=== PATIENT | male | born 1975 | race Caucasian/White ===

== ENCOUNTER 2019-07-05 08:21 | Emergency (ER) | payer BC, OTHER ==
[~2019-07-05] VITALS: Ht 185.4 cm; Wt 104.3 kg
[2019-07-05 08:39] VITALS: BP 124/84
[2019-07-05] MEDS ORDERED: ACETAMINOPHEN 160 MG/5 ML ORAL.SUSP. PO ONE (08:45)
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
[2019-07-05] MEDS ORDERED: ACETAMINOPHEN 650 MG/20.3 ML SOLUTION. ONE (08:57)
== END 2019-07-05 09:09 | disposition home or self-care (01) ==
LOC: ER 08:21
DX: S20.319A Abrasion of unspecified front wall of thorax, initial encounter (principal); S19.9XXA Unspecified injury of neck, initial encounter; Y08.89XA Assault by other specified means, initial encounter; Y93.89 Activity, other specified; Y92.89 Other specified places as the place of occurrence of the external cause; Y99.0 Civilian activity done for income or pay
CPT/HCPCS: 99281; 99282

== ENCOUNTER 2022-01-20 17:41 | Emergency (ER) | payer OTHER ==
[~2022-01-20] VITALS: Ht 185.4 cm; Wt 103.0 kg
--- NOTE | 2022-01-20 17:56 | PHYS DOC ---
Past History Past Medical History: Diabetes, GERD, Hypertension (SOFY AMBROSIO APRN) Alcohol Use: None Drug Use: None (SOFY AMBROSIO APRN) General Adult HPI: HPI: Patient is a 46-year-old male who presents to the emergency department for left- sided occipital head pain that he rates 3 out of 10. No treatment prior to arrival. Patient is also reporting photophobia and dizziness. Patient reports that he was getting out of his truck this morning around 545 he slipped on the ice and fell back hitting the back of his head on his truck and then on the ground. He denies any loss of consciousness, blood thinner use, nausea, vomiting, seizure-like activity, confusion, neck or back pain. (SOFY AMBROSIO APRN) Review of Systems: Review of Systems: Eyes: See HPI HENT: See HPI Musculoskeletal: See HPI Integument: See HPI Neurologic: See HPI (SOFY AMBROSIO APRN) Allergies: Allergies: Allergies Coded Allergies Type Severity Reaction Last Updated Verified No Known Drug Allergies 07/05/19 No (SOFY AMBROSIO APRN) Physical Exam: PE: Constitutional: Well developed, well nourished, no acute distress, non-toxic appearance. [] HENT: Normocephalic, atraumatic, no raccoon sign, no valdez sign, bilateral external ears normal, oropharynx moist, no oral exudates, nose normal. [] Eyes: PERRL, 3 mm bilaterally, EOMI, conjunctiva normal, no discharge. [] Neck: Normal range of motion, no bony spinal tenderness, step-offs or deformities, supple, no stridor. [] Cardiovascular:Heart rate regular rhythm, no murmur [] Lungs & Thorax: Bilateral breath sounds clear to auscultation [] Abdomen: Bowel sounds normal, soft, no tenderness, no masses, no pulsatile masses. [] Skin: Warm, dry, no erythema, no rash. [] Abrasion to left forearm without any swelling surrounding. Back: No bony spinal tenderness, normal range of motion Extremities: No tenderness, no cyanosis, no clubbing, ROM intact, no edema. [] Neurologic: Alert and oriented X 3, normal motor function, normal sensory function, no focal deficits noted, patient ambulatory, he is moving all four extremities equally, normal speech. [] Psychologic: Affect normal, judgement normal, mood normal. [] (SOFY AMBROSIO APRN) EKG: EKG: [] (SOFY AMBROSIO APRN) Radiology/Procedures: Radiology/Procedures: []PROCEDURE: CT HEAD AND CERVICAL SPINE WO Exam Date: 01/20/2022 5:[address] HEAD AND C-SPINE WO Indication: Reason: fall head injury, left temporal headache, light sensitivity / Spl. Instructions: / History: . One or more of the following dose reduction techniques were utilized: *Automated exposure control (AEC) *Adjustment of mA and/or kV according to patient size *Use of iterative reconstruction technique *CT scan done according to ALARA, or ALARA/IMAGE GENTLY EXAMINATION: CT OF THE HEAD WITHOUT CONTRAST INDICATION: Trauma, head injury, headache; TECHNIQUE: Noncontrast helical axial CT images of the head were obtained. FINDINGS: The ventricles and sulci are normal for the patient's stated age. There is no evidence of acute intracranial hemorrhage, extra-axial collection, mass effect, midline shift, or acute territorial infarct. No lesion of the skull base or the calvarium is seen. The visualized mastoid air cells, and orbits are normal in appearance. There is partial opacification of the paranasal sinuses. IMPRESSION: No evidence for acute intracranial abnormality. EXAMINATION: CT OF THE CERVICAL SPINE WITHOUT CONTRAST Clinical Indication: Cervical spine pain after trauma Technique: Thin cut helical axial CT images through the cervical spine were obtained without contrast on a multi-detector CT scanner. Source data was then reconstructed into sagittal and coronal planes. Findings: Alignment is maintained without spondylolisthesis. Vertebral body heights are maintained without acute fracture. Mild multilevel degenerative changes are noted. No significant prevertebral soft tissue swelling is demonstrated. No severe osseous central canal stenosis is seen. Impression: No evidence of acute cervical spine fracture or subluxation. Electronically signed by: Vanessa Monreal MD (01/20/2022 6:19 PM) [facility] DICTATED AND SIGNED BY: VANESSA MONREAL MD DATE: 01/20/221816 CC: SOFY AMBROSIO APRN; SABIHA BELCHER MD ~MTH0 0 (SOFY AMBROSIO APRN) Heart Score: C/O Chest Pain: N/A Risk Factors: Risk Factors: DM, Current or recent (<one month) smoker, HTN, HLP, family history of CAD, obesity. Risk Scores: Score 0 - 3: 2.5% MACE over next 6 weeks - Discharge Home Score 4 - 6: 20.3% MACE over next 6 weeks - Admit for Clinical Observation Score 7 - 10: 72.7% MACE over next 6 weeks - Early Invasive Strategies (SOFY AMBROSIO APRN) Course & Med Decision Making: Course & Med Decision Making Pertinent Labs and Imaging studies reviewed. (See chart for details) Patient presents to the emergency department after slipping on ice and falling and hitting the back of his head for left occipital head pain with photophobia and dizziness. Imaging was performed of his head and neck that showed no acute findings. His pain was treated in the ER. His physical exam was reassuring. Patient advised to take anti-inflammatory medications at home and apply ice. Patient advised to perform brain rest and avoid cell phone use, tablet use, watching television, he was advised to rest in a dark quiet area. I discussed with patient all findings and diagnostic testing as well as the need to follow- up with PCP for further evaluation and treatment or return to the ER if any new or worsening symptoms. Strict return precautions were also discussed at length. Patient voiced understanding and agreement with the plan. Patient is hemodynamically stable at the time of disposition. (SOFY AMBROSIO APRN) Course & Med Decision Making Did not see or evaluate patient. Did not discuss patient with VOLUNTEER SERVICES COORDINATOR. (NATHALY RIOS MD) Dragon Disclaimer: Dragon Disclaimer: This electronic medical record was generated, in whole or in part, using a voice recognition dictation system. (SOFY AMBROSIO APRN) Departure Departure: Impression: Primary Impression: Head injury Qualified Codes: S09.90XA - Unspecified injury of head, initial encounter Disposition: HOME / SELF CARE / HOMELESS Condition: GOOD Referrals: SABIHA BELCHER MD (PCP) Patient Instructions: Head Injury, Adult Additional Instructions: You were seen in the emergency department today for head pain after falling. Imaging was performed of your head and neck showed no acute findings. You can take Tylenol and/or ibuprofen at home for your pain. You can also apply ice. Rest at home in a dark quiet area. As you are experiencing photophobia, please avoid cell phone use, tablet use or television use. Follow-up with your primary care provider tomorrow regarding your ER visit. Return to the emergency department if you develop worsening of your pain, intractable nausea or vomiting, seizure-like activity, confusion, difficulty walking, difficulty with speech, vision changes. SOFY AMBROSIO APRN Jan 20, 2022 17:56 NATHALY RIOS MD Jan 20, 2022 20:25
[2022-01-20] MEDS ORDERED: IBUPROFEN 600 MG TABLET. PO ONE (18:00)
[2022-01-20 18:10] VITALS: BP 148/100
--- NOTE | 2022-01-20 18:21 | RAD ---
Exam Date: 01/20/2022 5:[address] HEAD AND C-SPINE WO Indication: Reason: fall head injury, left temporal headache, light sensitivity / Spl. Instructions: / History: . One or more of the following dose reduction techniques were utilized: *Automated exposure control (AEC) *Adjustment of mA and/or kV according to patient size *Use of iterative reconstruction technique *CT scan done according to ALARA, or ALARA/IMAGE GENTLY EXAMINATION: CT OF THE HEAD WITHOUT CONTRAST INDICATION: Trauma, head injury, headache; TECHNIQUE: Noncontrast helical axial CT images of the head were obtained. FINDINGS: The ventricles and sulci are normal for the patient's stated age. There is no evidence of acute int racranial hemorrhage, extra-axial collection, mass effect, midline shift, or acute territorial infarc t. No lesion of the skull base or the calvarium is seen. The visualized mastoid air cells, and orbits are normal in appearance. There is partial opacification of the paranasal sinuses. IMPRESSION: No evidence for acute intracranial abnormality. EXAMINATION: CT OF THE CERVICAL SPINE WITHOUT CONTRAST Clinical Indication: Cervical spine pain after trauma Technique: Thin cut helical axial CT images through the cervical spine were obtained without contrast on a multi-detector CT scanner. Source data was then reconstructed into sagittal and coronal planes. Findings: Alignment is maintained without spondylolisthesis. Vertebral body heights are maintained without acute fracture. Mild multilevel degenerative changes ar e noted. No significant prevertebral soft tissue swelling is demonstrated. No severe osseous central canal stenosis is seen. Impression: No evidence of acute cervical spine fracture or subluxation. Electronically signed by: Giancarlo Monreal MD (01/20/2022 6:19 PM) [facility]
== END 2022-01-20 19:00 | disposition home or self-care (01) ==
LOC: ER 17:41
DX: S50.812A Abrasion of left forearm, initial encounter (principal); S09.90XA Unspecified injury of head, initial encounter; E11.9 Type 2 diabetes mellitus without complications; K21.9 Gastro-esophageal reflux disease without esophagitis; I10 Essential (primary) hypertension; W00.0XXA Fall on same level due to ice and snow, initial encounter; Y93.89 Activity, other specified; Y92.89 Other specified places as the place of occurrence of the external cause; Y99.8 Other external cause status
CPT/HCPCS: 70450; 72125; 99284